=== PATIENT | male | born 1995 | race Caucasian/White ===

== ENCOUNTER 2017-12-31 23:00 | Emergency (ER) | payer OTHER ==
[2018-01-01] MEDS ORDERED: LIDOCAINE 1% MDV 20ML VIAL As Ordered (00:42)
[2018-01-01] MEDS: LevoFLOXacin 500 MG TABLET PO (00:52)
[2018-01-01] MEDS: cefTRIAXone SOD 250 MG VIAL (J0696) IM (00:53)
[2018-01-01 02:23] LABS: AMORPHOUS SEDIMENT RFX SMALL (NEGATIVE); KETONE, URINE AUTO RFX NEGATIVE (NEGATIVE); LEUKOCYTE ESTERASE UR AUTO RFX NEGATIVE (NEGATIVE); NITRITE, URINE AUTO RFX NEGATIVE (NEGATIVE); RBC, URINE AUTO RFX 2 /HPF (0-3); SPECIFIC GRAVITY UR AUTO RFX 1.019 (1.002-1.035); SQUAM EPITHELIAL CELL UR AURFX 0 /HPF (0-6); WBC, URINE AUTO RFX 1 /HPF (0-3)
[2018-01-01 02:39] LABS: CHLAMYDIA DNA AMPLIFICATION NEGATIVE (NEGATIVE); GC DNA AMPLIFICATION NEGATIVE (NEGATIVE)
== END 2018-01-01 01:10 | disposition home or self-care (01) ==
LOC: M ED 23:00
DX: N45.1 Epididymitis (principal); F17.200 Nicotine dependence, unspecified, uncomplicated
CPT/HCPCS: J0696